=== PATIENT | female | born 1950 | race Caucasian/White ===

== ENCOUNTER 2018-02-02 18:30 | Emergency (ER) | payer BC ==
[~2018-02-02] VITALS: Ht 152.4 cm; Wt 79.4 kg
--- OUTSIDE RECORDS SUMMARY | ~2018-02-02 | XMS | Clinical Summary ---
Demographics + + + | Address | [address] | | | [place] [address] | + + + | Home Phone | | + + + | Preferred Language | Unknown | + + + | Marital Status | Unknown | + + + | Sikhism Affiliation | Unknown | + + + | Race | Unknown | + + + | Ethnic Group | Unknown | + + + Author + + + | Author | [facility] | + + + | Organization | [facility] | + + + | Address | Unknown | + + + | Phone | Unavailable | + + + Care Team Providers + +------+ + | Care Concrete Truck Driver Name | Role | Phone | + +------+ + PP | Unavailable | + +------+ + Allergies Not on File Current Medications Not on file Active Problems Not on file Family History + + +------+ + | Medical History | Relation | Name | Comments | + + +------+ + | Other (see comments) | Brother | | pulmonary fibrosis | + + +------+ + | Hypertension | Father | | | + + +------+ + | Leukemia | Maternal | | | | | Aunt | | | + + +------+ + | Other (see comments) | Maternal | | Elizabeth Berger Disaease | | | Aunt | | | + + +------+ + | Diabetes | Maternal | | | | | Grandmoth | | | | | er | | | + + +------+ + | COPD | Mother | | | + + +------+ + | Heart disease | Mother | | | + + +------+ + | High cholesterol | Mother | | | + + +------+ + | Hypertension | Mother | | | + + +------+ + | Osteoporosis | Mother | | | + + +------+ + | Hypertension | Son | | | + + +------+ + + +------+--------+ + | Relation | Name | Status | Comments | + +------+--------+ + | Brother | | | | + +------+--------+ + | Father | | | | + +------+--------+ + | Maternal Aunt | | | | + +------+--------+ + | Maternal Grandmother | | | | + +------+--------+ + | Mother | | | | + +------+--------+ + | Son | | | | + +------+--------+ + Social History + +-------+ +--------+------+ | Tobacco Use | Types | Packs/Day | Years | Date | | | | | Used | | + +-------+ +--------+------+ | Never Assessed | | | | | + +-------+ +--------+------+ + + + | Sex Assigned at | Date Recorded | | | | + + + | Not on file | | + + + Last Filed Vital Signs + + + + | Vital Sign | Reading | Time Taken | + + + + | Blood Pressure | 144/87 | 01/30/2011 7:56 AM PDT | + + + + | Pulse | - | - | + + + + | Temperature | - | - | + + + + | Respiratory Rate | - | - | + + + + | Oxygen Saturation | - | - | + + + + | Inhaled Oxygen | - | - | | Concentration | | | + + + + | Weight | 81.2 kg (179 lb) | 01/30/2011 7:56 AM PDT | + + + + | Height | 157.5 cm (5' 2") | 01/18/2011 4:39 PM PDT | + + + + | Body Mass Index | 32.74 | 01/30/2011 7:56 AM PDT | + + + + Plan of Treatment Not on file Results Not on filefrom Last 3 Months
--- OUTSIDE RECORDS SUMMARY | ~2018-02-02 | XMS | Clinical Summary ---
Demographics + + + | Address | [address] | | | [place] [address] | + + + | Home Phone | | + + + | Preferred Language | Unknown | + + + | Marital Status | Unknown | + + + | Voodoo Affiliation | Unknown | + + + | Race | Unknown | + + + | Ethnic Group | Unknown | + + + Author + + + | Author | [facility] | + + + | Organization | [facility] | + + + | Address | Unknown | + + + | Phone | Unavailable | + + + Care Team Providers + +------+ + | Care Lead Java Software Engineer Name | Role | Phone | + [...]
[2018-02-02] MEDS ORDERED: PROZAC20 MG PO (18:52)
[2018-02-02] MEDS ORDERED: OMEPRAZOLE20 MG PO (18:52)
[2018-02-02] MEDS ORDERED: AUGMENTIN 875-1 EACH PO (18:56)
== END 2018-02-02 19:28 | disposition home or self-care (01) ==
LOC: ED 18:30
DX: S81.852A Open bite, left lower leg, initial encounter (principal); S60.512A Abrasion of left hand, initial encounter; S60.811A Abrasion of right wrist, initial encounter; Z23 Encounter for immunization; W55.01XA Bitten by cat, initial encounter
CPT/HCPCS: 90471; 90715; 99283

== ENCOUNTER 2021-07-12 14:54 | Emergency (ER) | payer MEDICARE, OTHER ==
[~2021-07-12] VITALS: Ht 152.4 cm; Wt 78.5 kg
[~2021-07-12 14:54] MED LIST: AUGMENTIN 875-1 EACH PO; OMEPRAZOLE20 MG PO; PROZAC20 MG PO
[2021-07-12] MEDS ORDERED: PREMARIN30 GM PV (15:06)
== END 2021-07-12 18:49 | disposition home or self-care (01) ==
LOC: ED 14:54
DX: R10.31 Right lower quadrant pain (principal); R10.32 Left lower quadrant pain; R06.4 Hyperventilation; K21.9 Gastro-esophageal reflux disease without esophagitis; Z79.899 Other long term (current) drug therapy
CPT/HCPCS: 80053; 81001; 83690; 85025; 99284

== ENCOUNTER 2022-09-01 06:10 | Day surgery (SDC) | payer MEDICARE ==
[~2022-09-01] VITALS: Ht 152.4 cm; Wt 77.5 kg
[~2022-09-01 06:10] MED LIST changes: +CALTRATE 600 +1 EAC3 PO; +FLUOXETINE HCL20 MG PO; +IRON18 MG PO; +MAGNESIUM30 MG; +PREMARIN30 GM PV; +VENTOLIN HFA18 GM
[2022-09-01] MEDS ORDERED: CLOBETASOL PROP15 GM TOP (06:32)
--- NOTE | 2022-09-01 08:54 | NUR ---
09/01/22 0854 Stephanie Kerns 0850- PT ARRIVES TO PACU REACTIVE TO VOICE. PT FALLS INSTANTLY BACK TO SLEEP WHEN NOT BEING TALKED TO. RESP EVEN AND UNLABORED. OXYGEN SAT 100% ON 3L VIA CO2 NC.
--- NOTE | 2022-09-01 10:35 | NUR ---
PT IS ALERT, ORIENTED AND HERE FOR FIRST EGD. PT HAS HAD PREVIOUS SCOPES. PT MENTIONED SHE IS IRON DEFICIENT, AND THESE SCOPES ARE TO SEE IF A REASON CAN BE LOCATED. PTS' SON IN LAW WILL BE HERE AT [place], REQUESTED PRAYER, WILL FOLLOW NEEDED
--- NOTE | 2022-09-05 09:35 | OR ---
[facility] [address] [place], [place] [address] Signed DATE OF OPERATION: 09/01/2022 SURGEON: Gilberto Sharif MD PREOPERATIVE DIAGNOSES: 1. Anemia. 2. Episodic dysphagia. 3. Constipation. POSTOPERATIVE DIAGNOSES: 1. Complex hiatal hernia, possible paraesophageal hernia; difficult passage of the scope beyond the proximal esophageal sphincter. 2. Pandiverticulosis. PROCEDURES: 1. Esophagogastroduodenoscopy with biopsy. 2. Total colonoscopy to the cecum. ANESTHESIA: Intravenous sedation, fentanyl 200 mcg and Versed 8 mg. INDICATION: This 72-year-old white woman is a patient of BELA Morales. She has been referred for consideration of anemia and associated dysphagia. She also has constipation. She is admitted to undergo upper endoscopy and colonoscopy to better characterize her problem. She understands the risk of bleeding, infection, perforation, and so on. FINDINGS: Passage of regular upper endoscope through the upper esophageal area was quite challenging, requiring change to a smaller diameter scope. There is no lesion identified, specifically no tumor. Vocal cords were normal. She had a complex hiatal hernia, probably paraesophageal hernia but no sign of ulceration or neoplasm. The duodenum was normal as well. On colonoscopy, the prep was good. Extensive diverticular changes were seen in the sigmoid, but diverticula were scattered through the entire colon including the area of the cecum. There was no sign of polyp or colitis. DESCRIPTION OF PROCEDURE: The patient was brought to the endoscopy suite and given topical lidocaine Electronically Signed By: GILBERTO SHARIF MD 09/05/22 0935 PATIENT NAME: RAAD BALLARD OPERATIVE REPORT DATE OF : 54 REPORT #: [id number] PHYSICIAN: GILBERTO SHARIF MD PCP: CHRIS WATERS REPORT IS CONFIDENTIAL AND NOT TO BE RELEASED WITHOUT AUTHORIZATION [facility] [address] [place], [place] [address] Signed hypopharyngeal anesthesia, and given intravenous sedation with full cardiopulmonary monitoring. An Olympus video upper endoscope was passed in the hypopharynx. The vocal cords visualized as normal. Passage into the esophagus was rather challenging despite various techniques and attempts to do so. On that basis, the scope was changed out to a small diameter upper scope which in time did allow for passage of the scope into the esophagus. The remaining esophagus appeared normal. Scope was advanced to the stomach, which was insufflated with air. Distorted GE junction consistent with complex hiatal hernia with probable paraesophageal hernia was noted. The orientation of the stomach was altered and ultimately the antrum better visualized as was the pylorus. The scope was passed into the duodenum, which was normal. Biopsies were obtained to assess for celiac disease. The scope was withdrawn and biopsies were taken of the antrum for both SALVADOR and pathologic testing. Retroflexed view confirmed distorted anatomy of the GE junction and a transverse of the stomach such that she may have stomach above the diaphragm or simply a paraesophageal hernia. Scope was straightened and withdrawn and biopsies were taken of the distal esophagus. There was no sign of neoplasm or Zhang's epithelium. Further withdrawal showed no other findings. Plans were then made for colonoscopy. Digital rectal examination was found to be normal. An Olympus video colonoscope was passed in the rectum and manipulated into the sigmoid. Profound diverticular changes were noted with distortion and difficulty passage of the scope. As the scope did not have as much mobility as required for rather challenging colonoscopy, it was changed out for a more capable colonoscope and with time the scope was passed beyond the sigmoid and ultimately to the cecum. Ileocecal valve and appendiceal orifice were noted to be normal. Scope was withdrawn from that point. Examination throughout confirmed diverticular changes extending from the cecum throughout the entire colon, most densely in the sigmoid and left colon. The rectum was normal. Scope was removed. The patient was taken to the recovery room in good condition. CONCLUDING DIAGNOSIS: Uncertain etiology of her anemia. Has mild dysphagia and the proximal esophageal findings are suggestive of possible cricopharyngeal bar or other nonobstructive issue. PLAN: She will return to the ongoing care of BELA Morales. Consideration might be made for upper GI to better characterize the proximal esophageal issue. As regards to constipation, would recommend a fiber supplement, Citrucel or Metamucil as well as MiraLAX on a daily basis. Electronically Signed By: GILBERTO SHARIF MD 09/05/22 0935 PATIENT NAME: RAAD BALLARD OPERATIVE REPORT DATE OF : 54 REPORT #: [id number] PHYSICIAN: GILBERTO SHARIF MD PCP: CHRIS WATERS REPORT IS CONFIDENTIAL AND NOT TO BE RELEASED WITHOUT AUTHORIZATION [address] [address] Signed Gilberto Sharif MD JM/MODL /[id number] cc: BELA Morales Copies: CHRIS WATERS ~ Electronically Signed By: GILBERTO SHARIF MD 09/05/22 0935 PATIENT NAME: RAAD BALLARD OPERATIVE REPORT DATE OF : 54 REPORT #: [id number] PHYSICIAN: GILBERTO SHARIF MD PCP: CHRIS WATERS REPORT IS CONFIDENTIAL AND NOT TO BE RELEASED WITHOUT AUTHORIZATION
--- NOTE | 2022-09-05 22:35 | PATH ---
[facility] [address] [place], [place] [address] Signed SPECIMEN(S): A DUODENAL BIOPSY SPECIMEN(S): B ANTRUM/PYLORUS BIOPSY SPECIMEN(S): C PROXIMAL STOMACH BIOPSY SPECIMEN(S): D LOWER ESOPHAGEAL BIOPSY SPECIMEN SOURCE: A. DUODENAL BIOPSY B. ANTRUM/PYLORUS BIOPSY C. PROXIMAL STOMACH BIOPSY D. LOWER ESOPHAGEAL BIOPSY CLINICAL HISTORY: Esophagogastroduodenoscopy, colonoscopy. Pre: Dysphagia, surveillance. Post: Complex hiatal hernia, mild gastritis, diverticular disease. FINAL PATHOLOGIC DIAGNOSIS: A. Duodenum, biopsy: - No significant histopathology. B. Antrum/pylorus, biopsy: - No significant histopathologic alterations. C. Proximal stomach, biopsy: - No significant histopathologic alterations. D. Lower esophagus, biopsy: - Chronic esophagitis. - No evidence of Zhang's esophagus. COMMENT: Regarding specimen A, the sections from the duodenal biopsy show portions of duodenal mucosa with long finger-like villi. There is no villous atrophy, crypt hyperplasia or intraepithelial lymphocytosis, making a diagnosis of celiac disease unlikely. There is no evidence of peptic duodenitis, microorganisms, abnormal infiltrates or neoplasia. Regarding specimen B, the sections through the gastric biopsies show fragments of histologically unremarkable antral mucosa. There is no evidence of acute or chronic inflammation. There is no evidence of H. pylori, intestinal metaplasia, abnormal infiltrates or neoplasia. Regarding specimen C, the sections through the gastric biopsies show fragments of histologically unremarkable oxyntic mucosa. There is no evidence of acute or chronic inflammation. There is no PATIENT NAME: ELIO,MARSHEA MARGIE PATHOLOGY DATE OF : 54 REPORT #: [id number] PHYSICIAN: JANET GARDNER PCP: CHRIS WATERS REPORT IS CONFIDENTIAL AND NOT TO BE RELEASED WITHOUT AUTHORIZATION [facility] [address] [place], [place] [address] Signed evidence of H. pylori, intestinal metaplasia, abnormal infiltrates or neoplasia. Regarding specimen D, the biopsy contains reactive appearing squamous mucosa with mild ballooning degeneration. Prominent vascular lakes are present in the papillae. There is no glandular tissue present. The changes are nonspecific and can be seen in a variety of settings including infections, gastroesophageal reflux disease or other forms of esophagitis. TWK:caw:C2NR MICROSCOPIC EXAMINATION: Histologic sections of all submitted blocks are examined by light microscopy. These findings, together with the gross examination, support the pathologic diagnosis. GROSS DESCRIPTION: Four specimens are received in four containers, labeled "MW." A. The specimen, labeled "MW, duodenum biopsy," is received in formalin and consists of three de la rosa soft tissue fragments that measure 0.2 cm in greatest dimension. The specimen is entirely submitted in cassette (A1). B. The specimen, labeled "MW, antrum biopsy," is received in formalin and consists of two de la rosa soft tissue fragments that measure 0.2 cm in greatest dimension. The specimen is entirely submitted in cassette (B1). C. The specimen, labeled "MW, proximal stomach biopsy," is received in formalin and consists of two de la rosa soft tissue fragments that measure 0.2-0.3 cm in greatest dimension. The specimen is entirely submitted in cassette (C1). D. The specimen, labeled "MW, lower esophagus biopsy," is received in formalin and consists of one de la rosa soft tissue fragment that measures 0.4 cm in greatest dimension. The specimen is entirely submitted in cassette (D1). JS (under the direct supervision of a pathologist) The Gross Description was prepared using a voice recognition system. The report was reviewed for accuracy; however, sound-alike word errors, addition and/or deletions may occur. If there is any question about this report, please contact Client Services. PERFORMING LABORATORY: PATIENT NAME: RAAD BALLARD PATHOLOGY DATE OF : 54 REPORT #: [id number] PHYSICIAN: JANET GARDNER PCP: CHRIS WATERS REPORT IS CONFIDENTIAL AND NOT TO BE RELEASED WITHOUT AUTHORIZATION [facility] [address] [place] [address] Signed The technical component was performed by [facility], [address] [place] [id number] (CLIA# [id number]). The professional interpretation was performed by [email or web address], [facility], [address] [place] [address] (CLIA#: [id number]). Diagnostician: Isaiah Blancas MD Pathologist Electronically Signed 09/05/2022 Copies: ~ PATIENT NAME: RAAD BALLARD PATHOLOGY DATE OF : 54 REPORT #: [id number] PHYSICIAN: JANET PATHOLOGY PCP: CHRIS WATERS REPORT IS CONFIDENTIAL AND NOT TO BE RELEASED WITHOUT AUTHORIZATION
== END 2022-09-01 09:44 | disposition home or self-care (01) ==
LOC: OPS 06:10 → DS 06:10 → OPS 07:30
PROVIDERS: ATTEND Surgery
PROC: 0DB68ZX Excision of Stomach, Via Natural or Artificial Opening Endoscopic, Diagnostic (ICD-10-PCS; principal; 2022-09-01 07:30)
PROC: 0DJD8ZZ Inspection of Lower Intestinal Tract, Via Natural or Artificial Opening Endoscopic (ICD-10-PCS; 2022-09-01 07:30)
DX: D50.9 Iron deficiency anemia, unspecified (principal); R13.19 Other dysphagia; K59.00 Constipation, unspecified; K44.9 Diaphragmatic hernia without obstruction or gangrene; K57.30 Diverticulosis of large intestine without perforation or abscess without bleeding; K20.90 Esophagitis, unspecified without bleeding; I10 Essential (primary) hypertension; F32.A Depression, unspecified
CPT/HCPCS: 99153; G0500; J2250; J3010; J7121

== ENCOUNTER 2023-01-18 13:51 | Emergency (ER) | payer MEDICARE ==
[~2023-01-18] VITALS: Ht 152.4 cm; Wt 76.5 kg
[~2023-01-18 13:51] MED LIST changes: +CLOBETASOL PROP15 GM TOP
[2023-01-18] MEDS ORDERED: B12-FOLIC ACID1 EACH PO (14:13)
== END 2023-01-18 16:39 | disposition home or self-care (01) ==
LOC: ED 13:51
DX: I10 Essential (primary) hypertension (principal); D64.9 Anemia, unspecified; E78.00 Pure hypercholesterolemia, unspecified; K21.9 Gastro-esophageal reflux disease without esophagitis; Z79.899 Other long term (current) drug therapy
CPT/HCPCS: 36415; 80053; 85025; 99284

== ENCOUNTER 2023-04-11 18:37 | Observation (INO) | payer MEDICARE ==
[~2023-04-11] VITALS: Ht 152.4 cm; Wt 73.8 kg
[~2023-04-11 18:37] MED LIST changes: +B12-FOLIC ACID1 EACH PO; +MAGNESIUM250 M1 PO; -MAGNESIUM30 MG
--- OUTSIDE RECORDS SUMMARY | 2023-04-11 18:39 | XMS ---
PreManage Notification: RAAD BALLARD Security Publisher Assistant Events No recent Security Events currently on file CRITERIA MET - [facility] CARE PROVIDERS There are no care providers on record at this time. Cy has no Care Guidelines for this patient. Bar VISIT COUNT (12 MO.) 2 ERIC Coyle TOTAL 2 NOTE: Visits indicate total known visits. ED/UCC VISIT TRACKING (12 MO.) 04/11/2023 18:37 ERIC Hernandez OR TYPE: Emergency COMPLAINT: - SOB 01/18/2023 13:51 ERIC Hernandez OR TYPE: Emergency COMPLAINT: - HIGH B/P DIAGNOSES: - Anemia, unspecified - Essential (primary) hypertension - Gastro-esophageal reflux disease without esophagitis - Low back pain, unspecified - Other long term care administrator (current) drug therapy - Pure hypercholesterolemia, unspecified INPATIENT VISIT TRACKING (12 MO.) No inpatient visits to display in this time frame [email or web address]
[2023-04-11] MEDS ORDERED: METOPROLOL SUCC25 MG PO (18:47)
--- NOTE | 2023-04-11 21:02 | NUR ---
pt ARRIVED TO THE MEDSUR FLOOR AT THIS TIME, SELF TRANSFERRED FROM ED WC TO MS BED. ADMISSION COMPLETED BY THIS RN, PRIMARY RN IN ROOM TO RECEIVE BEDSIDE REPORT AND COMPLETE ASSESSMENT. pt ORIENTED TO POC, QUESTIONS ANSWERED AND CALL LIGHT IN REACH.
--- NOTE | 2023-04-11 21:10 | NUR ---
PT ADMITTED FROM THE ER. REPORT RECEIVED FROM ER NURSE AT BEDSIDE. PT STABLE. PRBC ORDERED. TYPE AND SCREEN PENDING. VSS. SKIN INTACT. IVF INITIATED. PT'S FAMILY AT BEDSIDE. SAFETY PRECAUTIONS MAINTAINED. CALL LIGHT WITHIN REACH. WILL CONTINUE TO MONITOR.
[2023-04-11 21:11] VITALS: BP 152/78
--- NOTE | 2023-04-11 23:26 | NUR ---
BLOOD TRANSFUSION INITIATED. PT TOLERATING INFUSION WELL. VSS. WILL CONTINUE TO MONITOR.
--- NOTE | 2023-04-11 23:43 | NUR ---
2 UNITS OF PRBC ORDERED. HOSPITALIST WANTED 2 UNITS GIVEN.
--- NOTE | 2023-04-12 01:00 | NUR ---
GRANDDAUGHTER MG MORENO AT RN STATION AND VERBALIZES SHE IS GOING TO GO HOME FOR THE NIGHT AND PLANS TO RETURN TO VISIT pt IN THE MORNING, PHONE NUMBER [phone]. PRIMARY RN AWARE AND UPDATED.
[2023-04-12 01:45] VITALS: BP 165/66
--- NOTE | 2023-04-12 02:31 | NUR ---
call light answered, pt up sba to void in abthroom and back to bed. pt steady on feet, call light in reach. iv site wnl, blood transfusing wnl. warm blanket provided per pt request. no further needs or concerns verbalized when asked.
[2023-04-12 05:22] VITALS: BP 175/77
--- NOTE | 2023-04-12 06:46 | NUR ---
PT DID NOT GET ANY REST DURING THE SHIFT. PT VERY RESTLESS AND UNCOMFORTABLE. PT COMPLAINED OF BACK PAIN. HEAT PACKS USED. ROXICODONE GIVEN. 2 UNITS OF PRBC INFUSED. PT TOLERATED INFUSION WELL. NO ADVERSE REACTION NOTED. HGB WENT FROM 6.5 TO 8.6 THIS AM. IVF INFUSING PER ORDER. PT SBA TO THE BATHROOM. GOOD OUTPUT NOTED. SAFETY PRECAUTIONS MAINTAINED. CALL LIGHT WITHIN REACH. WILL CONTINUE TO MONITOR.
--- NOTE | 2023-04-12 06:52 | EKG ---
[facility] [address] [facility] [place], [place] [address] Signed Normal sinus rhythm No previous ECGs available Confirmed by MANE BECK MD ([id number]) on 04/12/2023 6:52:02 AM Electronically Signed By: MANE BECK 04/12/23 0652 PATIENT NAME: RAAD BALLARD Electrocardiogram DATE OF : 54 PHYSICIAN: MANE BECK REPORT #: [id number] REPORT IS CONFIDENTIAL AND NOT TO BE RELEASED WITHOUT AUTHORIZATION
--- NOTE | 2023-04-12 07:26 | NUR ---
GOT REPORT FROM PROPERTY MANAGER NURSE. PATIENT CURRENTLY ON HER LEFT SIDE ASLEEP. PER PROPERTY MANAGER PATIENT WAS UP MOST OF THE NIGHT. REGULAR RESPIRATIONS NOTED.
[2023-04-12] MEDS ORDERED: ALPRAZOLAM0.25 MG PO (08:18)
[2023-04-12] MEDS ORDERED: IBUPROFEN800 MG PO (08:20)
[2023-04-12] MEDS ORDERED: CEFDINIR300 MG PO (09:37)
[2023-04-12] MEDS ORDERED: AZITHROMYCIN500 MG PO (09:38)
--- NOTE | 2023-04-12 09:41 | NUR ---
PATIENT SITTING UP AND EATING BREAKFAST.PHARMACY WAS INTO TALK TO PATIENT ABOUT MEDICATIONS. PATIENT GIVEN MORNING MEDICATIONS. REFUSES LIDOCAINE PATCH. OVERALL PATIENT FEELS SHE IS IMPROVING SINCE GETTING SOME MUCH NEEDED REST THIS MORNING.
[2023-04-12 10:05] VITALS: BP 154/54
--- NOTE | 2023-04-12 10:05 | NUR ---
PATIENT UP AND WORKED WITH PHYSICAL THERAPY.
[2023-04-12] MEDS ORDERED: FISH OIL 1,0001 EAC6 PO (10:48)
--- NOTE | 2023-04-12 10:50 | NUR ---
MED REC COMPLETE
--- NOTE | 2023-04-12 11:04 | NUR ---
PATIENT CURRENTLY ASLEEP ON HER LEFT SIDE. REGULAR RESPIRATIONS NOTED.
--- NOTE | 2023-04-12 11:15 | NUR ---
Pt sleeping soundly, not awakened. Will attempt to see pt later.
[2023-04-12] MEDS ORDERED: PANTOPRAZOLE SO40 MG PO (12:22)
--- NOTE | 2023-04-12 12:25 | NUR ---
PATIENT EDUCATION DONE ON DISCHARGE. PATIENT WOULD LIKE TO EAT LUNCH AND THEN CALL FOR HER RIDE. IV HAS BEEN REMOVED.VITALS TAKEN.
[2023-04-12] MEDS ORDERED: OXYCODONE HCL5 MG PO (12:55)
--- NOTE | 2023-04-12 13:43 | NUR ---
IV FLUIDS RUNNING. CHARGE NURSE UNABLE TO GET IV. POTASSIUM WAS SLOWED DOWN TO RATE OF 75 IN THE IV SITE THAT WAS BOTHERING HER AND IT WAS DOING WELL. THIS NURSE JUST WENT IN AND MOVED IT UP TO RATE OF 100 TO SEE HOW SHE DOES. PATIENT ASLEEP, REGULAR RESPIRATIONS NOTED.
--- NOTE | 2023-04-12 13:47 | NUR ---
PATIENT READY TO DISCHARGE. PATIENTS RIDE WILL BE HERE AROUND 1400.
[2023-04-12 13:50] VITALS: BP 153/83
--- NOTE | 2023-04-12 15:00 | NUR ---
Returned to see pt and she has discharged.
== END 2023-04-12 14:25 | disposition home or self-care (01) ==
LOC: ED 18:37 → MS 18:38 → ED 20:47 → MS 04-12 14:25
PROVIDERS: ADMIT Family Medicine; ATTEND Family Medicine
DX: D50.9 Iron deficiency anemia, unspecified (principal); N17.9 Acute kidney failure, unspecified; J18.9 Pneumonia, unspecified organism; I10 Essential (primary) hypertension; G89.29 Other chronic pain; M54.50 Low back pain, unspecified; Z79.899 Other long term (current) drug therapy
CPT/HCPCS: 36415; 71045; 80053; 81003; 82728; 83550; 83735; 83880; 84484; 85025; 85060; 85610; 85730; 86850; 86900; 86901; 86922; 93005; 93010; 94640; 97161; J0696; J7030

== ENCOUNTER 2025-03-06 09:19 | Day surgery (SDC) | payer MEDICARE ==
[~2025-03-06] VITALS: Ht 172.7 cm; Wt 69.5 kg
[~2025-03-06 09:19] MED LIST changes: +ALPRAZOLAM0.25 MG PO; +AZITHROMYCIN500 MG PO; +CEFDINIR300 MG PO; +FISH OIL 1,0001 EAC6 PO; +IBLOOD GLUCOSE TEST STRIP 1 EA TEST VI PRN; +IBUPROFEN800 MG PO; +LACTATED RINGER'S 1,000 ML IV SCH; +LIDOCAINE HCL 1% 5 ML SDV INJ ONE; +LIDOCAINE HCL 4% 50 ML BTL TOP SCH; +METOPROLOL SUCC25 MG PO; +MIDAZOLAM HCL 5 MG/5 ML VIAL IV PRN; +OXYCODONE HCL5 MG PO; +PANTOPRAZOLE SO40 MG PO; +fentaNYL citrate 100 MCG/2 ML VIAL IV PRN
[2025-03-06 09:43] VITALS: BP 139/70
[2025-03-06] MEDS ORDERED: fentaNYL citrate 100 MCG/2 ML VIAL ONE (10:32)
[2025-03-06] MEDS ORDERED: MIDAZOLAM HCL 5 MG/5 ML VIAL ONE (10:32)
[2025-03-06 12:01] VITALS: BP 124/68
--- NOTE | 2025-03-06 12:33 | NUR ---
03/06/25 1233 Iesha Mead 1117 PT ARRIVED IN PACU SLEEPY WITH NO C/O'S. 1125 DR AT BEDSIDE. ALL QUESTIONS ANSWERED. 1140 SITTING UP IN BED SIPPING ON WATER. 1150 DC INSTRUCTIONS GIVEN. 1200 GETTING DRESSED. 1217 LEFT VIA W/C.
--- NOTE | 2025-03-07 13:09 | OR ---
[facility] [address] [place], [place] [address] Signed DATE OF OPERATION: 03/06/2025 SURGEON: Gilberto Sharif MD PREOPERATIVE DIAGNOSIS: Complex hiatal hernia, probable paraesophageal hernia, anticipating repair. POSTOPERATIVE DIAGNOSIS: Complex hiatal hernia, probable paraesophageal hernia, anticipating repair. PROCEDURE: Esophagogastroduodenoscopy with biopsy. ANESTHESIA: Intravenous sedation fentanyl 100 mcg and Versed 4 mg. INDICATION: This 74-year-old white woman is a patient of BELA Morales. She is known to me from the past. She is a former employee at [employer] as well. She had longstanding reflux and dysphagia problems and in the past underwent upper endoscopy by me confirming probable complex paraesophageal hernia. Indeed, the stomach could not be excluded with the scope. She is now more inclined to undergo repair given the symptoms she is experiencing. On that basis, I have recommended upper endoscopy to assess no evidence of neoplasm, stricture or other similar problems. She understands the risk of upper endoscopy including but not limited to bleeding, infection, and perforation; wished to proceed. FINDINGS: Esophagus itself was entirely normal. Stomach did have an abnormal confirmation consistent with complex hiatal hernia likely paraesophageal hernia. With various manipulations, the scope was passed out of the stomach into the duodenum. It appeared normal. Biopsies were taken of the duodenum, stomach and distal esophagus. There was no sign of neoplasm, ulceration, or other contraindication to Hill repair. DESCRIPTION OF PROCEDURE: The patient was brought to the endoscopy suite and given topical lidocaine hypopharyngeal anesthesia, placed in lateral decubitus position. She was given intravenous sedation to the point of slurred speech and nystagmus. A bite block was placed. An Olympus video upper endoscope was passed in the hypopharynx. The vocal cords were visualized as normal scope was advanced to the esophagus. Esophagus easily Electronically Signed By: GILBERTO SHARIF MD 03/07/25 1309 PATIENT NAME: RAAD BALLARD OPERATIVE REPORT DATE OF : 54 REPORT #: [id number] PHYSICIAN: GILBERTO SHARIF MD PCP: CHRIS WATERS REPORT IS CONFIDENTIAL AND NOT TO BE RELEASED WITHOUT AUTHORIZATION [facility] [address] [place], [place] [address] Signed passed and appeared normal. Upon entry into the stomach, a distorted and contorted stomach was noted. There was no sign of inflammatory change, ulceration, or retained gastric contents. With various manipulations, the scope was manipulated into the antral portion of the stomach and the pylorus was identified and the scope passed within the duodenum. The duodenum was normal. Biopsies were obtained to assess for celiac disease. Retroflexed view at this point showed distorted multilevel hiatal hernia likely concordant to a paraesophageal hernia and sac. Scope was withdrawn. A biopsy was taken of the stomach for both SALVADOR and pathologic testing. Scope was withdrawn. Distal esophageal biopsies were obtained as well though the esophagus looks clinically normal. Further withdrawal showed no other abnormality. CONCLUDING DIAGNOSIS: Complex hiatal hernia, most likely paraesophageal hernia. PLAN: Repair was anticipated in the future. We will see her back in the office in the near future to anticipate plan and review risks and benefits of the procedure. Gilberto Sharif MD JM/MODL /[id number] cc: BELA Morales Copies: CHRIS WATERS ~ Electronically Signed By: GILBERTO SHARIF MD 03/07/25 1309 PATIENT NAME: RAAD BALLARD OPERATIVE REPORT DATE OF : 54 REPORT #: [id number] PHYSICIAN: GILBERTO SHARIF MD PCP: CHRIS WATERS REPORT IS CONFIDENTIAL AND NOT TO BE RELEASED WITHOUT AUTHORIZATION
--- NOTE | 2025-03-10 20:31 | PATH ---
[facility] [address] [facility], [place] [address] Signed SPECIMEN(S): A DUODENAL BIOPSY SPECIMEN(S): B STOMACH BODY BIOPSY SPECIMEN(S): C DISTAL ESOPHAGEAL BIOPSY SPECIMEN SOURCE: A. DUODENAL BIOPSY B. STOMACH BODY BIOPSY C. DISTAL ESOPHAGEAL BIOPSY CLINICAL HISTORY: History of likely complex esophageal hernia, complex paraesophageal hernia FINAL PATHOLOGIC DIAGNOSIS: A. Duodenum, biopsy: - Duodenal mucosa with normal villous architecture. - Khoa's glands are present. - Negative for acute, chronic, and granulomatous inflammation. - Negative for dysplasia and malignancy. B. Stomach, body, biopsy: - Gastric body mucosa with occasional dilated glands, suggestive of proton pump inhibitor effect. - Slight chronic inflammation is present, with no acute or active inflammation. - No H. pylori-like organisms identified on routine HE-stained histologic sections. - Negative for intestinal metaplasia, dysplasia, and malignancy. C. Distal esophagus, biopsy: - Stratified squamous esophageal mucosa with mild congestion in the rete peg vessels. - Negative for acute, chronic, and eosinophilic inflammation. - No glandular epithelium identified. - Negative for dysplasia and malignancy. SDL MICROSCOPIC EXAMINATION: Histologic sections of all submitted blocks are examined by light microscopy. These findings, together with the gross examination, support the pathologic diagnosis. GROSS DESCRIPTION: A. The specimen, labeled and designated "B[place]den duodenal biopsy," is PATIENT NAME: RAAD BALLARD PATHOLOGY DATE OF : 54 REPORT #: [id number] PHYSICIAN: JANET GARDNER PCP: CHRIS WATERS REPORT IS CONFIDENTIAL AND NOT TO BE RELEASED WITHOUT AUTHORIZATION [facility] [address] [place], [place] [address] Signed received in formalin and consists of two de la rosa soft tissue fragments, ranging from 0.2-0.4 cm. Entirely submitted in (A1). B. The specimen, labeled and designated "B[place], stomach body biopsy," is received in formalin and consists of two de la rosa soft tissue fragments, ranging from 0.2-0.4 cm. Entirely submitted in (B1). C. The specimen, labeled and designated "B[place]den, distal esophageal biopsy," is received in formalin and consists of four de la rosa soft tissue fragments, ranging from 0.1-0.2 cm. Entirely submitted in (C1). VB (under the direct supervision of a pathologist) The Gross Description was prepared using a voice recognition system. The report was reviewed for accuracy; however, sound-alike word errors, addition and/or deletions may occur. If there are any questions about this report, please contact Client Services. ADDITIONAL NOTES: Immunohistochemical and/or in situ hybridization studies if performed in this case included appropriate positive controls that reacted as expected. This test was developed and its performance characteristics determined by [facility]. It has not been cleared or approved by the U.S. Food and Drug Administration. The FDA has determined that such clearance or approval is not necessary. This test is used for clinical purposes. It should not be regarded as investigational or for research. [facility] is certified under the Clinical Laboratory Improvement Amendments of 1988 (CLIA) as qualified to perform high complexity clinical laboratory testing. PERFORMING LABORATORY: Technical component was performed by [facility], [address] [place] [id number] (CLIA# [id number]). Professional interpretation was performed by [facility], [address] [place] [address] (CLIA#: [id number]). Diagnostician: Caroline Montejo MD Pathologist Electronically Signed 03/10/2025 Copies: PATIENT NAME: RAAD BALLARD PATHOLOGY DATE OF : 54 REPORT #: [id number] PHYSICIAN: JANET GARDNER PCP: CHRIS WATERS REPORT IS CONFIDENTIAL AND NOT TO BE RELEASED WITHOUT AUTHORIZATION [address] [id number] [place], [place] [address] Signed ~ PATIENT NAME: RAAD BALLARD PATHOLOGY DATE OF : 54 REPORT #: [id number] PHYSICIAN: JANET PATHOLOGY PCP: CHRIS WATERS REPORT IS CONFIDENTIAL AND NOT TO BE RELEASED WITHOUT AUTHORIZATION
== END 2025-03-06 12:17 | disposition home or self-care (01) ==
LOC: DS 09:19
PROVIDERS: ATTEND Surgery
PROC: 0DB68ZX Excision of Stomach, Via Natural or Artificial Opening Endoscopic, Diagnostic (ICD-10-PCS; 2025-03-06)
PROC: 0DB38ZX Excision of Lower Esophagus, Via Natural or Artificial Opening Endoscopic, Diagnostic (ICD-10-PCS; 2025-03-06)
PROC: 0DB98ZX Excision of Duodenum, Via Natural or Artificial Opening Endoscopic, Diagnostic (ICD-10-PCS; principal; 2025-03-06 11:00)
DX: K44.9 Diaphragmatic hernia without obstruction or gangrene (principal); K29.50 Unspecified chronic gastritis without bleeding; K21.9 Gastro-esophageal reflux disease without esophagitis
CPT/HCPCS: 99153; G0500; J2250; J3010; J7121